=== PATIENT | female | born 1975 | race Caucasian/White ===

== ENCOUNTER 2023-03-09 19:34 | Emergency (ER) | payer MEDICAID, OTHER ==
[~2023-03-09] VITALS: Ht 154.9 cm; Wt 88.5 kg
[2023-03-09] MEDS ORDERED: ONDANSETRON ODT 4 MG TAB.RAPDIS SL ONE (21:00)
[2023-03-09] MEDS ORDERED: MECLIZINE HCL 25 MG TABLET PO ONE (21:00)
[2023-03-09] MEDS ORDERED: IV NORMAL SALINE 1000 ML BAG IV ONE (21:00)
[2023-03-09] MEDS ORDERED: IV NS 1000 ML 1,000 ML IV ONE (21:00)
[2023-03-09] MEDS ORDERED: MECLIZINE HCL 25 MG TABLET ONE (21:11)
[2023-03-09] MEDS ORDERED: ONDANSETRON ODT 4 MG TAB.RAPDIS ONE (21:11)
[2023-03-09 21:33] LABS: BASOPHILS % (AUTO) 0.5 % (0.0-2.0); EOSINOPHILS # (AUTO) 0.1 K/uL (0.0-0.7); EOSINOPHILS % (AUTO) 1.4 % (0.0-7.0); HEMATOCRIT 38.6 % (31.2-41.9); HEMOGLOBIN 12.8 g/dL (10.9-14.3); LYMPHOCYTES # (AUTO) 3.9 K/uL (0.8-4.8); LYMPHOCYTES % (AUTO) 41.6 % (20.5-51.5); MEAN CORPUSCULAR HEMOGLOBIN 29.6 uug (24.7-32.8); MEAN CORPUSCULAR HGB CONC 33 g/dL (32.3-35.6); MEAN CORPUSCULAR VOLUME 89.4 fL (75.5-95.3); MONOCYTES # (AUTO) 0.6 K/uL (0.1-1.30); MONOCYTES % (AUTO) 6.4 % (0.0-11.0); NEUTROPHILS # (AUTO) 4.7 K/uL (1.8-8.9); NEUTROPHILS % (AUTO) 50.1 % (38.5-71.5); PLATELET COUNT (AUTO) 288 K/uL (179-408); RED BLOOD CELL COUNT(AUTO) 4.32 MIL/uL (3.63-4.92); RED CELL DISTRIBUTION WIDTH 14.6 % (12.3-17.7); WHITE BLOOD COUNT (AUTO) 9.3 K/uL (3.8-11.8)
[2023-03-09 21:41] LABS: CALCIUM 8.3 mg/dL (8.5-10.1); CREATININE 0.8 mg/dL (0.6-1.3); POTASSIUM 3.8 mmol/L (3.5-5.1)
[2023-03-09 21:44] LABS: DIFFERENTIAL COMMENT 1
[2023-03-09 21:45] LABS: *URINE HCG, QUAL NEGATIVE (NEGATIVE)
[2023-03-09 21:47] LABS: ALBUMIN 3.5 g/dL (3.4-5.0); BILIRUBIN,DIRECT 0.1 mg/dL (0.0-0.2); BILIRUBIN,TOTAL 0.2 mg/dL (0.2-1.0); TOTAL PROTEIN, SERUM 7.6 g/dL (6.4-8.2)
[2023-03-09] MEDS ORDERED: MECL-159 PO (22:58)
[2023-03-09] MEDS ORDERED: ONDA4TAB11 PO (22:58)
[2023-03-09 23:30] VITALS: BP 137/88; TEMP 208; O2SAT 99
== END 2023-03-09 23:31 | disposition home or self-care (01) ==
LOC: ER 19:36
DX: R42 Dizziness and giddiness (principal); E78.5 Hyperlipidemia, unspecified; G43.909 Migraine, unspecified, not intractable, without status migrainosus; Z90.49 Acquired absence of other specified parts of digestive tract
CPT/HCPCS: 99284; 70450; 80076; 80048; 84703; 85025; 36415; 93005; J7040; A4663; J8597; Q0162

== ENCOUNTER 2024-01-27 01:09 | Emergency (ER) | payer MEDICAID ==
[~2024-01-27] VITALS: Ht 152.4 cm; Wt 88.5 kg
[~2024-01-27 01:09] MED LIST: MECL-159 PO; ONDA4TAB11 PO
[2024-01-27] MEDS ORDERED: ONDANSETRON 4 MG/2 ML VIAL ONE (01:49)
[2024-01-27] MEDS ORDERED: HYDROMORPHONE 1 MG/1 ML DISP.SYRIN ONE (01:49)
[2024-01-27] MEDS ORDERED: KETOROLAC TROMETHAMINE 15 MG INJ ONE (01:49)
[2024-01-27 01:50] LABS: BASOPHILS # (AUTO) 0.1 K/UL (0.0-0.2); BASOPHILS % (AUTO) 0.4 % (0.0-2.0); EOSINOPHILS % (AUTO) 0.3 % (0.0-7.0); HEMOGLOBIN 12.7 g/dL (10.9-14.3); LYMPHOCYTES # (AUTO) 2.8 K/uL (0.8-4.8); LYMPHOCYTES % (AUTO) 19.7 % (20.5-51.5); MEAN CORPUSCULAR HEMOGLOBIN 28.9 uug (24.7-32.8); MEAN CORPUSCULAR HGB CONC 33 g/dL (32.3-35.6); MONOCYTES # (AUTO) 0.6 K/uL (0.1-1.30); MONOCYTES % (AUTO) 4.3 % (0.0-11.0); NEUTROPHILS # (AUTO) 10.8 K/uL (1.8-8.9); NEUTROPHILS % (AUTO) 75.3 % (38.5-71.5); PLATELET COUNT (AUTO) 326 K/uL (179-408); RED BLOOD CELL COUNT(AUTO) 4.38 MIL/uL (3.63-4.92); RED CELL DISTRIBUTION WIDTH 14.9 % (12.3-17.7); WHITE BLOOD COUNT (AUTO) 14.3 K/uL (3.8-11.8)
[2024-01-27 01:54] LABS: *URINE HCG, QUAL NEGATIVE (NEGATIVE)
[2024-01-27] MEDS: KETOROLAC TROMETHAMINE 15 MG INJ IVP ONE (01:55)
[2024-01-27] MEDS: ONDANSETRON 4 MG/2 ML VIAL IV ONE (01:55)
[2024-01-27] MEDS: HYDROMORPHONE 1 MG/1 ML DISP.SYRIN IV ONE (01:55)
[2024-01-27 01:56] LABS: CREATININE 0.9 mg/dL (0.6-1.3); POTASSIUM 3.9 mmol/L (3.5-5.1)
[2024-01-27 01:59] LABS: *BILIRUBIN,URIN NEGATIVE (NEGATIVE); *BLOOD, URINE 3+ (NEGATIVE); *CLARITY,URINE CLEAR (CLEAR); *COLOR,URINE YELLOW (YELLOW); *KETONES,URINE TRACE (NEGATIVE); *PROTEIN,URINE 2+ (NEGATIVE); *UROBILINOGEN,URINE 0.2 E.U./dl (NORMAL); LEUKOCYTE ESTERASE ,URINE NEGATIVE (NEGATIVE); NITRITE, URINE NEGATIVE (NEGATIVE); UGLUCOSE NEGATIVE (NEGATIVE)
[2024-01-27 02:00] LABS: DIFFERENTIAL COMMENT 1
[2024-01-27 02:02] LABS: ALBUMIN 3.9 g/dL (3.4-5.0); BILIRUBIN,TOTAL 0.4 mg/dL (0.2-1.0)
[2024-01-27 04:47] VITALS: BP 137/82; TEMP 97.8; O2SAT 98
[2024-01-27 12:00] LABS: BACTERIA,URINE FEW /HPF (NONE SEEN); RBC,URINE 80-100 /HPF (0-3); SQUAMOUS EPITHELIAL CELL,UR FEW /HPF (NONE SEEN); WBC,URINE 0-3 /HPF (0-3)
== END 2024-01-27 04:46 | disposition home or self-care (01) ==
LOC: ER 01:20
DX: N20.2 Calculus of kidney with calculus of ureter (principal); R10.32 Left lower quadrant pain; R10.2 Pelvic and perineal pain; E78.5 Hyperlipidemia, unspecified; Z90.49 Acquired absence of other specified parts of digestive tract; Z98.890 Other specified postprocedural states; Z79.899 Other long term (current) drug therapy
CPT/HCPCS: 99285; 74176; 96374; 96375; 80053; 81001; 84703; 83690; 85025; 36415; J1885; J2405; J1170; A4606; A4663